=== PATIENT | male | born 1950 | race Caucasian/White ===

== ENCOUNTER 2016-12-31 11:58 | Observation (INO) | payer OTHER ==
[~2016-12-31] VITALS: Ht 177.8 cm; Wt 98.4 kg
--- NOTE | 2016-12-31 12:40 | EMERGENCY ROOM VISIT NOTE ---
History Report prepared by Tom: Eligio Holden Under the Supervision of: Dr. Liz Faust D.O. First contact with patient: 12:20 Chief Complaint: RESPIRATORY PROBLEMS Stated Complaint: COUGHING AND PASSING OUT, HX OF HEART TROUBLE Nursing Triage Summary: Relates coughing that develops into syncope. History of Present Illness The patient is a 66 year old male who presents to the Emergency Room with complaints of a worsening cough for the past 1-2 weeks. The patient has episodes of excessive coughing. The cough is dry and nonproductive. The patient states that the coughing leads to lightheadedness and syncope. The patient becomes short of breath with exertion. He denies chest pain or pressure. He does not become dizzy or lightheaded with exertion. The patient has been excessively tired lately, and he notes that he falls asleep easily even after a full night of sleep. He also describes bilateral shoulder heaviness intermittently that is not associated with exertion. The patient had similar shoulder heaviness in the past, that led to Cardiology referral and cardiac catheterization and three stents being placed. The patient denies recent fevers , chills, congestion, nausea, vomiting, diarrhea, or leg swelling. He denies recent medication changes or travel. The patient last saw Cardiology over 9 months ago. It has been several years since his last catheterization. He was never a smoker. Source of History: patient Onset: 1-2 weeks ago Position: other (respiratory) Quality: other (dry, nonproductive) Timing: worsening Associated Symptoms: + LOC, + SOB, + fatigue, No fevers, No chills, No chest pain, No nausea, No vomiting, No diarrhea Review of Systems See HPI for pertinent positives & negatives. A total of 10 systems reviewed and were otherwise negative. Past Medical & Surgical Medical Problems: (1) Atypical chest pain (2) CAD (coronary artery disease) Surgical Problems: (1) H/O heart artery stent Family History No pertinent family history Social History Smoking Status: Never Smoker Marital Status: Housing Status: lives with family Current/Historical Medications Scheduled Aspirin (Aspirin Ec), 81 MG PO DAILY Atorvastatin (Lipitor), 80 MG PO DAILY Doxycycline Hyclate (Doxycycline Hyclate), 100 MG PO BID Escitalopram Oxalate (Lexapro), 20 MG PO DAILY Fexofenadine Hcl (Kristen), 180 MG PO DAILY Insulin Human NPH (Novolin N), 45 UNITS SQ QAM Insulin Human NPH (Novolin N), 35 UNITS SQ QPM Insulin Human Regular (Novolin R), 25 UNITS SQ QAM Insulin Human Regular (Novolin R), 10 UNITS SQ QPM Isosorbide Mononitrate (Isosorbide Mononitrate ER), 90 MG PO BID Metformin Hcl (Glucophage), 850 MG PO BID Metoprolol Succ (Toprol Xl) (Toprol-Xl), 25 MG PO QAM Potassium Chloride (Micro-K Ext Rel), 10 MEQ PO DAILY Triamcinolone Acetonide (Nasal (Nasacort Allergy 24Hr), 2 SPRAYS CALEB DAILY Scheduled PRN Guaifenesin Ext Rel (Mucinex Ext Rel), 600 MG PO Q12 PRN for Cough Allergies Coded Allergies: No Known Allergies (Unverified , 12/31/16) Physical Exam Vital Signs Date Time Temp Pulse Resp B/P (MAP) Pulse Ox O2 Delivery O2 Flow Rate FiO2 12/31/16 15:15 56 17 96 12/31/16 15:10 56 18 96 12/31/16 15:05 56 22 97 12/31/16 15:00 52 18 96 12/31/16 14:55 55 20 95 12/31/16 14:50 103/59 12/31/16 12:58 63 96 12/31/16 12:53 60 20 96 12/31/16 12:48 60 18 12/31/16 12:43 58 21 95 12/31/16 12:38 62 15 96 12/31/16 12:33 61 21 96 12/31/16 12:28 58 22 96 12/31/16 12:23 65 16 94 12/31/16 12:18 59 16 98 12/31/16 12:14 58 12/31/16 12:13 55 15 97 12/31/16 12:08 59 20 97 12/31/16 12:07 96 Room Air 12/31/16 12:05 108/65 12/31/16 12:04 36.9 64 20 106/74 95 Room Air Physical Exam GENERAL: alert, well appearing, well nourished, no distress, non-toxic EYE EXAM: normal conjunctiva. OROPHARYNX: no exudate, no erythema, lips, buccal mucosa, and tongue normal and mucous membranes are moist NECK: supple, no nuchal rigidity, no adenopathy, non-tender LUNGS: Clear to auscultation. Normal chest wall mechanics HEART: no murmurs, S1 normal and S2 normal CHEST: No reproducible chest tenderness. ABDOMEN: abdomen soft, non-tender, normo-active bowel sounds, no masses, no rebound or guarding. BACK: Back is symmetrical on inspection and there is no deformity, no midline tenderness, no CVA tenderness. SKIN: no rashes and no bruising UPPER EXTREMITIES: upper extremities are grossly normal. No reproducible shoulder tenderness. LOWER EXTREMITIES: No pitting edema. NEURO EXAM: Normal sensorium, cranial nerves II-XII grossly intact, normal speech, no gross weakness of arms, no gross weakness of legs. Gross sensation intact. Medical Decision & Procedures ER Provider Diagnostic Interpretation: Radiology results have been interpreted by the radiologist and reviewed by me. CHEST 2 VIEWS ROUTINE CLINICAL HISTORY: Shortness of breath. Cough. Syncope. COMPARISON STUDY: 11/22/2009 FINDINGS: The cardiac and mediastinal contours are normal. There is no evidence of focal pulmonary consolidation. There is no evidence of failure. No pleural effusions are visualized.[ IMPRESSION: No active disease in the chest. Electronically signed by: Jc Hu M.D. 12/31/2016 1:08 PM Dictated Date/Time: 12/31/2016 1:08 PM Laboratory Results Test 12/31/16 12:45 Prothrombin Time 10.6 SECONDS (9.0-12.0) Prothromb Time International Ratio 1.0 (0.9-1.1) D-Dimer 300 ug/L FEU (0-500) Pro-B-Type Natriuretic Peptide 290 pg/ml (0-900) Laboratory results per my review. ECG Indication: SOB/dyspnea Rate (beats per minute): 64 Rhythm: normal sinus Findings: no acute ischemic change, no ectopy ED Course 1222: The patient was evaluated in room B2. A complete history and physical exam was performed. 1238: EMR reviewed. The patient's last cardiac catheterization was in the 2009. Three stents noted with additional coronary disease. Medical management was advised. 1342: Updated the patient. Discussed the findings. He agrees with the plan. 1350: Discussed the case with Dr. Terrence Ochoa, [facility]. The patient will be evaluated. He requested a D-dimer. Medical Decision Differential diagnosis: Etiologies such as cardiac ischemia, aortic dissection, pulmonary embolism, pneumonia, pneumothorax, musculoskeletal, infections, pericarditis, myocarditis , esophageal rupture, gastrointestinal, as well as others were entertained. Medication Reconciliation: I attest that I have personally reviewed the patient' s current medication list. Blood pressure screening: Patient was found to have normal blood pressure on screening and does not require follow-up. Pt with hx of CAD and concerning story for angina similar to prior episodes. No hx of trauma or recent illness. Unclear etiology of cough. Pt not taking FRANKLYN inhibitor. NO evidence of chf or infiltrate. No hx of additional pulmonary comorbidities. Doubt dissection, pe, tamponade, effusion. Dimer requested by hospitalist was negative. VS otw stable and pt without sx while here. Concern for syncope related to coughing also. Concern given pt's description of shoulder pain similar to prior episode which led to stent placement as pt's anginal equivalent. Pt with normal and nonfocal neuro exam, doubt neuro etiology for syncope. No other recent changes or prodromal sx prior to cough related syncope. No evidence of infectious etiology. Consults Time Called: 1340 Consulting Physician: Dr. Terrence Ochoa, [facility] Returned Call: 1350 The patient will be evaluated. Impression Primary Impression: Cough Additional Impressions: Shoulder pain Syncope Scribe Attestation The scribe's documentation has been prepared under my direction and personally reviewed by me in its entirety. I confirm that the note above accurately reflects all work, treatment, procedures, and medical decision making performed by me. Departure Information Dispostion Being Evaluated By Hospitalist Prescriptions Guaifenesin Ext Rel (MUCINEX EXT REL) 600 Mg Tabcr 600 MG PO Q12 Y for Cough, #30 TAB 0 Refills Prov: Jerome Wilkinson MD 01/01/17 Fexofenadine Hcl (KRISTEN) 180 Mg Tab 180 MG PO DAILY, #30 TAB 0 Refills Prov: Jerome Wilkinson MD 01/01/17 Triamcinolone Acetonide (Nasal (Nasacort Allergy 24Hr) 55 Mcg/Act Spr 2 SPRAYS CALEB DAILY, #1 BTL 0 Refills Prov: Jerome Wilkinson MD 01/01/17 Doxycycline Hyclate (Doxycycline Hyclate) 100 Mg Cap 100 MG PO BID for 5 Days, #10 CAP 0 Refills begin AM of 01/02/17 Prov: Jerome Wilkinson MD 01/01/17 Referrals Armando Medina M.D. (PCP) Patient Instructions My [facility] Problem Qualifiers Additional Impressions: Shoulder pain Chronicity: acute Laterality: bilateral Qualified Codes: M25.511 - Pain in right shoulder; M25.512 - Pain in left shoulder Syncope Syncope type: unspecified Qualified Codes: R55 - Syncope and collapse
[2016-12-31 12:55] LABS: BASO % 0.9 %; BASO ABS # 0.07 K/uL (0-0.2); COMPLETE YES; EOS % 3.4 %; HEMATOCRIT 36.8 % (42-52); IG% 0.3 %; LYMPH % 41.4 %; LYMPH ABS # 3.06 K/uL (1.2-3.4); MEAN CELL VOLUME 87.8 fL (80-100); MEAN CORPUSCULAR HEMOGLOBIN 30.1 pg (25-34); MEAN CORPUSCULAR HGB CONC 34.2 g/dl (32-36); MEAN PLATELET VOLUME 10.4 fL (7.4-10.4); MONO % 6.4 %; NEUT % 47.6 %; PLATELET COUNT 193 K/uL (130-400); RED BLOOD COUNT 4.19 M/uL (4.7-6.1)
[2016-12-31 13:09] LABS: PROTHROMBIN TIME (PATIENT) 10.6 SECONDS (9.0-12.0)
--- NOTE | 2016-12-31 13:10 | DIAGNOSTIC IMAGING REPORT ---
CHEST 2 VIEWS ROUTINE CLINICAL HISTORY: Shortness of breath. Cough. Syncope. COMPARISON STUDY: 11/22/2009 FINDINGS: The cardiac and mediastinal contours are normal. There is no evidence of focal pulmonary consolidation. There is no evidence of failure. No pleural effusions are visualized.[ IMPRESSION: No active disease in the chest. Electronically signed by: Jc Hu M.D. 12/31/2016 1:08 PM Dictated Date/Time: 12/31/2016 1:08 PM
[2016-12-31 13:11] LABS: BLOOD UREA NITROGEN 12 mg/dl (7-18); CREATININE 0.81 mg/dl (0.60-1.40); GLUCOSE 225 mg/dl (70-99)
[2016-12-31 13:12] LABS: ALT/SGPT 24 U/L (12-78); AST/SGOT 15 U/L (15-37); BUN/CREATININE RATIO 14.5 (10-20); CALCIUM 8.2 mg/dl (8.5-10.1); CARBON DIOXIDE 28 mmol/L (21-32); CHLORIDE 107 mmol/L (98-107); MAGNESIUM 1.8 mg/dl (1.8-2.4); POTASSIUM 4.2 mmol/L (3.5-5.1); SODIUM 141 mmol/L (136-145)
[2016-12-31] MEDS ORDERED: ASPI81TA28 PO (13:13)
[2016-12-31] MEDS ORDERED: IMDSR60 PO (13:13)
[2016-12-31] MEDS ORDERED: METF-383 PO (13:13)
[2016-12-31] MEDS ORDERED: ATOR-26 PO (13:13)
[2016-12-31] MEDS ORDERED: ESCI1TAB10 PO (13:13)
[2016-12-31] MEDS ORDERED: NVLNI SQ ×2 (13:13)
[2016-12-31] MEDS ORDERED: POTA10CA28 PO (13:13)
[2016-12-31] MEDS ORDERED: RRNOVOLINR SQ (13:13)
[2016-12-31] MEDS ORDERED: NVLRPUC SQ (13:13)
[2016-12-31] MEDS ORDERED: METO25TA56 PO (13:13)
[2016-12-31 13:17] LABS: ALB/GLOB RATIO 1.2 (0.9-2); ALKALINE PHOSPHATASE 80 U/L (45-117)
--- NOTE | 2016-12-31 15:06 | History and Physical ---
History & Physical Date & Time of Service: Dec 31, 2016 at 14:54 Chief Complaint: Coughing And Passing Out, Hx Of Heart Trouble Primary Care Physician: Armando Medina M.D. History of Present Illness Source: patient, family, clinic records, hospital records This patient is a pleasant 66-year-old male that presents the emergency department with a main complaint of cough, dizziness and pain between his shoulder blades. He is unable to tell me how long the symptoms have been going on. He thinks that the cough has been going on for at least one month. It is nonproductive. When he has these coughing fits, he gets significantly lightheaded. The patient started coughing in the car today while he was driving with his . He reportedly passed out for 1-2 seconds. He denies any fever or chills. No sick contacts. The patient describes the pain between his shoulder blades as a dull ache as if he over exerted himself or lifted something heavy. He cannot associate it with exertion. It is intermittent. No alleviating factors. It does not radiate anywhere. The patient does have a significant cardiac history. He is a total of 3 cardiac stents. According to the patient, bilateral shoulder pain proceeded one of the stents. Past Medical/Surgical History Medical Problems: Coronary artery disease status post 3 stents Depression Diabetes type 2 Hypertension Family History No pertinent family history Mother and father both have a history of coronary disease. [place] in their 60s Social History Smoking Status: Never Smoker Alcohol Use: none Marital Status: Housing status: lives with significant other Occupational Status: retired Allergies Coded Allergies: No Known Allergies (Unverified , 12/31/16) Home Medications Scheduled Aspirin (Aspirin Ec), 81 MG PO DAILY Atorvastatin (Lipitor), 80 MG PO DAILY Escitalopram Oxalate (Lexapro), 20 MG PO DAILY Insulin Human NPH (Novolin N), 45 UNITS SQ QAM Insulin Human NPH (Novolin N), 35 UNITS SQ QPM Insulin Human Regular (Novolin R), 25 UNITS SQ QAM Insulin Human Regular (Novolin R), 10 UNITS SQ QPM Isosorbide Mononitrate (Isosorbide Mononitrate ER), 90 MG PO BID Metformin Hcl (Glucophage), 850 MG PO BID Metoprolol Succ (Toprol Xl) (Toprol-Xl), 25 MG PO QAM Potassium Chloride (Micro-K Ext Rel), 10 MEQ PO DAILY Review of Systems 10 system review performed and negative unless noted in HPI or below Physical Exam Vital Signs Date Time Temp Pulse Resp B/P (MAP) Pulse Ox O2 Delivery O2 Flow Rate FiO2 12/31/16 14:50 103/59 12/31/16 12:58 63 96 12/31/16 12:53 60 20 96 12/31/16 12:48 60 18 12/31/16 12:43 58 21 95 12/31/16 12:38 62 15 96 12/31/16 12:33 61 21 96 12/31/16 12:28 58 22 96 12/31/16 12:23 65 16 94 12/31/16 12:18 59 16 98 12/31/16 12:14 58 12/31/16 12:13 55 15 97 12/31/16 12:08 59 20 97 12/31/16 12:07 96 Room Air 12/31/16 12:05 108/65 12/31/16 12:04 36.9 64 20 106/74 95 Room Air General Appearance: no apparent distress Head: normocephalic Eyes: EOMI Respiratory/Chest: lungs clear, + pertinent finding (no pain elicited with palpation over the scapula bilaterally. No tenderness over the thoracic spine.) Cardiovascular: regular rate, rhythm Abdomen/GI: normal bowel sounds, non tender, soft Extremities/Musculoskelatal: no calf tenderness, no pedal edema, + pertinent finding (a few scabs associated with mosquito bites noted) Neurologic/Psych: no motor/sensory deficits, oriented x 3 Skin: warm/dry Diagnostics Laboratory Results Results Past 24 Hours Test 12/31/16 12:45 Range/Units White Blood Count 7.40 4.8-10.8 K/uL Red Blood Count 4.19 4.7-6.1 M/uL Hemoglobin 12.6 14.0-18.0 g/dL Hematocrit 36.8 42-52 % Mean Corpuscular Volume 87.8 80-100 fL Mean Corpuscular Hemoglobin 30.1 25-34 pg Mean Corpuscular Hemoglobin Concent 34.2 32-36 g/dl Platelet Count 193 130-400 K/uL Mean Platelet Volume 10.4 7.4-10.4 fL Neutrophils (%) (Auto) 47.6 % Lymphocytes (%) (Auto) 41.4 % Monocytes (%) (Auto) 6.4 % Eosinophils (%) (Auto) 3.4 % Basophils (%) (Auto) 0.9 % Neutrophils # (Auto) 3.53 1.4-6.5 K/uL Lymphocytes # (Auto) 3.06 1.2-3.4 K/uL Monocytes # (Auto) 0.47 0.11-0.59 K/uL Eosinophils # (Auto) 0.25 0-0.5 K/uL Basophils # (Auto) 0.07 0-0.2 K/uL RDW Standard Deviation 42.9 36.4-46.3 fL RDW Coefficient of Variation 13.4 11.5-14.5 % Immature Granulocyte % (Auto) 0.3 % Immature Granulocyte # (Auto) 0.02 0.00-0.02 K/uL Prothrombin Time 10.6 9.0-12.0 SECONDS Prothromb Time International Ratio 1.0 0.9-1.1 D-Dimer 300 0-500 ug/L FEU Sodium Level 141 136-145 mmol/L Potassium Level 4.2 3.5-5.1 mmol/L Chloride Level 107 98-107 mmol/L Carbon Dioxide Level 28 21-32 mmol/L Anion Gap 6.0 3-11 mmol/L Blood Urea Nitrogen 12 7-18 mg/dl Creatinine 0.81 0.60-1.40 mg/dl Estimated GFR () 105.8 Estimated GFR (Non- 91.3 BUN/Creatinine Ratio 14.5 10-20 Random Glucose 225 70-99 mg/dl Calcium Level 8.2 8.5-10.1 mg/dl Magnesium Level 1.8 1.8-2.4 mg/dl Total Bilirubin 0.4 0.2-1 mg/dl Aspartate Amino Transf (AST/SGOT) 15 15-37 U/L Alanine Aminotransferase (ALT/SGPT) 24 12-78 U/L Alkaline Phosphatase 80 45-117 U/L Troponin I < 0.015 0-0.045 ng/ml Pro-B-Type Natriuretic Peptide 290 0-900 pg/ml Total Protein 6.2 6.4-8.2 gm/dl Albumin 3.4 3.4-5.0 gm/dl Globulin 2.8 2.5-4.0 gm/dl Albumin/Globulin Ratio 1.2 0.9-2 Diagnostic Radiology Patient: JARRED FLANNERY Address1: [address] [facility] Rec: [id number] Address2: Acct ID: [id number] [facility] Zip: [place] [id number] Date: 1950 Sex: M Room/Bed: Ref Phy: Armando Medina M.D. SC: MANISHB Att Phy: Report #: [id number] Brittany Phy: Armando Medina M.D. Test: CXR Admit Phy: Safety Leader: FILIPE Interpreting Phy: cJ Hu M.D. Diagnosis: COUGHING AND PASSING OUT, HX OF HEART TROUBLE Ordering Phy: Liz Faust DO Service Date: 12/31/16 Admit Date: 12/31/16 MNE: [id number] CONF: DICTATED BY: Jc Hu M.D.]] CC: Armando Medina M.D. Pheasant, Karen S., DO Endcc: DIAGNOSTIC IMAGING ] CHEST 2 VIEWS ROUTINE CLINICAL HISTORY: Shortness of breath. Cough. Syncope. COMPARISON STUDY: 11/22/2009 FINDINGS: The cardiac and mediastinal contours are normal. There is no evidence of focal pulmonary consolidation. There is no evidence of failure. No pleural effusions are visualized.[ IMPRESSION: No active disease in the chest. Electronically signed by: Jc Hu M.D. 12/31/2016 1:08 PM Dictated Date/Time: 12/31/2016 1:08 PM The status of this report is Signed. EKG Normal sinus rhythm 64 bpm Q waves noted in the inferior leads No acute ischemic changes noted Impression Assessment and Plan 66-year-old male presented to the emergency department with chronic cough, lightheadedness and bilateral shoulder discomfort. Patient has a significant history of coronary disease. Differential diagnosis includes unstable angina, acute coronary syndrome, aortic dissection, pericarditis, infectious etiology such as bronchitis, pneumonia, sinusitis, postnasal drip secondary to allergies. Less likely would be a neurologic cause. I believe that the syncopal episodes are likely vasovagal from coughing spells. Bilateral shoulder discomfort rule out acute coronary syndrome -observe in telemetry -follow cardiac enzymes every 8 hr x 2 -daily EKG -EKG with worsening pain -Stress echo -Consult cardiology -D-dimer was checked and within normal limits. Aortic dissection would be highly unlikely -Continue current medical management with aspirin 81 mg daily, Plavix 75 mg daily, Crestor 40 mg daily, Toprol-XL 25 mg daily and Imdur ER 90 mg daily Syncope-likely vasovagal in nature -Check orthostatics -Telemetry monitoring as noted above Diabetes mellitus type 2-blood sugars have been running slightly high -Hold patient's outpatient dose of metformin 850 mg twice daily while in-house -Continue Novolin 45 units with breakfast and 35 units with dinner -Add insulin sliding scale -Check hemoglobin A1c DVT prophylaxis -Lovenox 40 mg subQ daily -TEDS, SCDs CODE STATUS -LEVEL I FULL CODE This chart was completed in part utilizing [employer] Speech Voice Recognition software. Attempts were made to minimize the grammatical errors, random word insertions, pronoun errors and incomplete sentences. Any formal questions or concerns about the content, text or information contained within the body of this dictation should be directly addressed to the provider for clarification. I personally and independently interviewed and examined the patient I reviewed labs and imaging I agree with above mentioned physical exam, History and ROS I discussed and formulated the assessment and plan with Mrs. Griffin 66-year-old male P/W recurrent syncope and bilateral shoulder discomfort, he has chronic cough for the past 3-4 weeks, mainly non productive Hx of CAD and [place] few years ago but did not tolerate the CPAP machine (6 years ago) while sleeping here he developed bradycardia rest of ROS is positive for cough and syncope PE as above assessment: Chronic cough syncope bilateral shoulder discomfort Plan: Stress test start heparin drip cardiac consult O2 pulse recorder over night to evaluate the extent of his sleep apnea lipitor/ASA HgbA1c and lipids panel Onesimo Ochoa [facility] Level of Care Telemetry Resuscitation Status FULL RESUSCITATION VTE Prophylaxis VTE Risk Assessment Done? Y/N: Yes Risk Level: Low
[2016-12-31] MEDS ORDERED: NITROGLYCERIN 0.4 MG SL PER TAB CHARGE SL PRN (15:15)
[2016-12-31] MEDS ORDERED: ONDANSETRON INJ 2 MG/ML 2 ML VIAL IV PRN (15:15)
[2016-12-31] MEDS ORDERED: ACETAMINOPHEN 325 MG TAB PO PRN (15:15)
[2016-12-31 15:30] VITALS: O2SAT 96; BMI 32.3
[2016-12-31] MEDS ORDERED: ISOSORBIDE MONONITRATE 60 MG TABCR PO SCH (15:36)
[2016-12-31] MEDS ORDERED: METO25TA3 PO (15:45)
[2016-12-31] MEDS ORDERED: IV FLUIDS COMPLETED PRN (15:45)
[2016-12-31] MEDS ORDERED: GLUCOSE 40% GEL 15 GM TUBE PO PRN (17:00)
[2016-12-31] MEDS ORDERED: GLUCAGON FOR INJ 1 MG VIAL SQ PRN (17:00)
[2016-12-31] MEDS ORDERED: GLUCOSE 10 TABS/TUBE PO PRN (17:00)
[2016-12-31] MEDS ORDERED: DEXTROSE 50% 50 ML SYR IV PRN (17:00)
[2016-12-31 17:04] VITALS: BP 112/67; PULSE 54; TEMP 36.4; O2SAT 96
[2016-12-31] MEDS ORDERED: PHARMACY GLYCEMIC MGMT CONSULT PRN (17:30)
[2016-12-31] MEDS: INSULIN ASPART 100 UNITS/ML 3 ML PEN SC SCH ×2 (18:11→21:00)
[2016-12-31 18:53] VITALS: BP 104/59; PULSE 50; TEMP 36.5; O2SAT 94
[2016-12-31] MEDS ORDERED: INSULIN HUMAN REGULAR SQ SCH (21:00)
[2016-12-31] MEDS ORDERED: ENOXAPARIN 40 MG/0.4 ML SYR SC SCH (21:00)
[2016-12-31] MEDS ORDERED: AZITHROMYCIN 250 MG TAB PO ONE (21:00)
[2016-12-31] MEDS: INSULIN GLARGINE SOLOSTAR 100 UNITS/ML 3 ML PEN SC SCH (21:13)
[2016-12-31 22:13] LABS: CKMB/CK RATIO 0.9 (0-3.0)
[2016-12-31 23:53] VITALS: BP 118/70; PULSE 58; TEMP 36.7; O2SAT 94
[2017-01-01] VITALS (7 sets, daily range): BP systolic 101–122; BP diastolic 62–78; PULSE 58–77; TEMP 36.4–36.6; O2SAT 91–96; Ht 177.8 cm; Wt 98.4 kg
[2017-01-01] MEDS: INSULIN ASPART 100 UNITS/ML 3 ML PEN SC SCH (07:57)
--- NOTE | 2017-01-01 08:12 | Hospitalist Progress Note ---
Hospitalist Progress Note Date of Service Jan 01, 2017. (Isha Neville PA-C) Subjective Pt evaluation today including: conversation w/ patient, conversation w/ family , physical exam, chart review, lab review, review of studies Pain: none PO Intake: good Voiding: no voiding problems The patient was seen and examined this morning. Pt reports doing well. He just had his stress test completed with Dr. Zepeda. He denies having any chest pain during the procedure. He did feels a little fatigued on the treadmill, but denies any shoulder blade pain like he had yesterday. Pt denies any other acute complaints Constitutional: No fever, No chills, No sweats Eyes: No redness, No diplopia ENT: No nasal symptoms, No trouble swallowing Respiratory: No cough, No shortness of breath, No dyspnea on exertion Cardiovascular: No chest pain, No palpitations Abdomen: No pain, No nausea, No vomiting, No diarrhea, No constipation Musculoskeletal: No joint pain, No muscle pain, No swelling Male : No dysuria Neurologic: No weakness, No numbness/tingling Endo: No fatigue Skin: No rash, No itch (Isha Neville PA-C) Objective Vital Signs Date Time Temp Pulse Resp B/P (MAP) Pulse Ox O2 Delivery O2 Flow Rate FiO2 01/01/17 07:33 36.6 58 20 112/68 (83) 95 Room Air 01/01/17 04:05 96 Room Air 01/01/17 04:00 36.5 62 20 122/78 (93) 94 Room Air 01/01/17 00:05 96 Room Air 12/31/16 23:53 36.7 58 20 118/70 (86) 94 Room Air 12/31/16 20:00 Room Air 12/31/16 18:53 36.5 50 18 104/59 (74) 94 Room Air 12/31/16 17:04 36.4 54 20 112/67 (82) 96 Room Air 12/31/16 16:32 36.9 56 16 91/62 96 12/31/16 16:10 56 16 96 12/31/16 16:05 50 19 95 12/31/16 16:00 51 19 /62 95 12/31/16 15:55 50 16 95 12/31/16 15:50 51 20 95 12/31/16 15:45 54 16 93 12/31/16 15:40 53 19 97 12/31/16 15:39 92/55 12/31/16 15:39 53 18 92/55 96 12/31/16 15:35 57 24 94 12/31/16 15:30 96 Room Air 12/31/16 15:30 59 21 96 12/31/16 15:25 55 20 94 12/31/16 15:20 52 18 93 12/31/16 15:15 56 17 96 12/31/16 15:10 56 18 96 12/31/16 15:05 56 22 97 12/31/16 15:00 52 18 96 12/31/16 14:55 55 20 95 12/31/16 14:50 103/59 12/31/16 12:58 63 96 12/31/16 12:53 60 20 96 12/31/16 12:48 60 18 12/31/16 12:43 58 21 95 12/31/16 12:38 62 15 96 12/31/16 12:33 61 21 96 12/31/16 12:28 58 22 96 12/31/16 12:23 65 16 94 12/31/16 12:18 59 16 98 12/31/16 12:14 58 12/31/16 12:13 55 15 97 12/31/16 12:08 59 20 97 12/31/16 12:07 96 Room Air 12/31/16 12:05 108/65 12/31/16 12:04 36.9 64 20 106/74 95 Room Air (Isha Neville PA-C) Physical Exam General Appearance: WD/WN, no apparent distress Eyes: PERRL, EOMI ENT: hearing grossly normal, pharynx normal Neck: supple, no JVD Respiratory/Chest: chest non-tender, lungs clear, no respiratory distress, no accessory muscle use Cardiovascular: regular rate, rhythm, no murmur Abdomen: normal bowel sounds, non tender, soft Extremities: non-tender, no pedal edema, no calf tenderness Neurologic/Psychiatric: alert, normal mood/affect, oriented x 3 Skin: normal color, warm/dry (Isha Neville PA-C) Laboratory Results Last 24 Hours Test 12/31/16 12:45 12/31/16 18:07 12/31/16 21:00 12/31/16 21:15 White Blood Count 7.40 K/uL Red Blood Count 4.19 M/uL Hemoglobin 12.6 g/dL Hematocrit 36.8 % Mean Corpuscular Volume 87.8 fL Mean Corpuscular Hemoglobin 30.1 pg Mean Corpuscular Hemoglobin Concent 34.2 g/dl Platelet Count 193 K/uL Mean Platelet Volume 10.4 fL Neutrophils (%) (Auto) 47.6 % Lymphocytes (%) (Auto) 41.4 % Monocytes (%) (Auto) 6.4 % Eosinophils (%) (Auto) 3.4 % Basophils (%) (Auto) 0.9 % Neutrophils # (Auto) 3.53 K/uL Lymphocytes # (Auto) 3.06 K/uL Monocytes # (Auto) 0.47 K/uL Eosinophils # (Auto) 0.25 K/uL Basophils # (Auto) 0.07 K/uL RDW Standard Deviation 42.9 fL RDW Coefficient of Variation 13.4 % Immature Granulocyte % (Auto) 0.3 % Immature Granulocyte # (Auto) 0.02 K/uL Prothrombin Time 10.6 SECONDS Prothromb Time International Ratio 1.0 D-Dimer 300 ug/L FEU Sodium Level 141 mmol/L Potassium Level 4.2 mmol/L Chloride Level 107 mmol/L Carbon Dioxide Level 28 mmol/L Anion Gap 6.0 mmol/L Blood Urea Nitrogen 12 mg/dl Creatinine 0.81 mg/dl Estimated GFR () 105.8 Estimated GFR (Non- 91.3 BUN/Creatinine Ratio 14.5 Random Glucose 225 mg/dl Calcium Level 8.2 mg/dl Magnesium Level 1.8 mg/dl Total Bilirubin 0.4 mg/dl Aspartate Amino Transf (AST/SGOT) 15 U/L Alanine Aminotransferase (ALT/SGPT) 24 U/L Alkaline Phosphatase 80 U/L Troponin I < 0.015 ng/ml < 0.015 ng/ml Pro-B-Type Natriuretic Peptide 290 pg/ml Total Protein 6.2 gm/dl Albumin 3.4 gm/dl Globulin 2.8 gm/dl Albumin/Globulin Ratio 1.2 Bedside Glucose 121 mg/dl 78 mg/dl Total Creatine Kinase 173 U/L Creatine Kinase MB 1.6 ng/ml Creatine Kinase MB Ratio 0.9 Test 01/01/17 05:06 01/01/17 07:28 Creatine Kinase MB Ratio Bedside Glucose 144 mg/dl (Isha Neville, CHRISTOPHE) Assessment and Plan Bilateral shoulder discomfort rule out acute coronary syndrome - Cardiac enzymes were negative x 3 -daily EKG shows bradycardia with HR in high 50s to low 60s. -EKG with worsening pain - Cardiology on board, Stress echo completed, await results. If good then likely can be discharged home. Will need follow up with Dr. Zepeda as oupt -Continue current medical management with aspirin 81 mg daily, Plavix 75 mg daily, Crestor 40 mg daily, Toprol-XL 25 mg daily and Imdur ER 90 mg daily Syncope-likely vasovagal in nature -Check orthostatics- results are WNL -Telemetry monitoring as noted above DM II -blood sugars have been running slightly high -Hold patient's outpatient dose of metformin 850 mg twice daily while in-house -Continue Novolin 45 units with breakfast and 35 units with dinner -ISS with accuchecks -Hgb A1c=8.9, improved compared to previously DVT pppx: -Lovenox 40 mg subQ daily, -TEDS, SCDs CODE STATUS: -LEVEL I FULL CODE Disposition: From home, likely discharge home today if stress test was normal. (Isha Neville, CHRISTOPHE) Attending Attestation: Pt seen/examined, chart reviewed, care plan d/w MARQUISE Neville. I agree w/ the anderson components of her progress note documentation. Please see my addendum to the d/c summary dated 01/01/17 for more details. Jerome Wilkinson MD (Jerome Wilkinson MD)
[2017-01-01] MEDS: INSULIN GLARGINE SOLOSTAR 100 UNITS/ML 3 ML PEN SC SCH (08:25)
[2017-01-01] MEDS ORDERED: ESCITALOPRAM OXALATE 20 MG TAB PO SCH (09:00)
[2017-01-01] MEDS ORDERED: ASPIRIN 81 MG ECTAB PO SCH (09:00)
[2017-01-01] MEDS ORDERED: INSULIN HUMAN NPH SQ SCH (09:00)
[2017-01-01] MEDS ORDERED: ATORVASTATIN 20 MG TAB PO SCH (09:00)
[2017-01-01] MEDS ORDERED: ISOSORBIDE MONONITRATE 30 MG TABCR PO SCH (09:00)
[2017-01-01] MEDS ORDERED: METOPROLOL SUCC 25MG EXT REL TAB PO SCH (09:00)
[2017-01-01] MEDS ORDERED: AZITHROMYCIN 250 MG TAB PO SCH (09:00)
[2017-01-01 09:20] LABS: BASO % 1.1 %; BASO ABS # 0.07 K/uL (0-0.2); COMPLETE YES; EOS % 3.4 %; IG% 0.3 %; LYMPH % 32.1 %; LYMPH ABS # 2.09 K/uL (1.2-3.4); MEAN CELL VOLUME 89.1 fL (80-100); MEAN CORPUSCULAR HEMOGLOBIN 30.7 pg (25-34); MEAN CORPUSCULAR HGB CONC 34.5 g/dl (32-36); MEAN PLATELET VOLUME 10.8 fL (7.4-10.4); MONO % 6.3 %; NEUT % 56.8 %; PLATELET COUNT 209 K/uL (130-400); RED BLOOD COUNT 4.49 M/uL (4.7-6.1); WHITE BLOOD COUNT 6.52 K/uL (4.8-10.8)
[2017-01-01 09:48] LABS: ESTIMATED AVERAGE GLUCOSE 209 mg/dl; HA1C FLAG Normal (Normal)
--- NOTE | 2017-01-01 09:58 | CARDIOLOGY CONSULTATION ---
DATE OF CONSULTATION: 01/01/2017 DATE OF CONSULTATION: 01/01/2017. REFERRING PHYSICIAN: Dr. Onesimo Ochoa. CHIEF COMPLAINT: Shoulder pain. HISTORY OF PRESENT ILLNESS: Mr. Paul Mejias is a 66-year-old gentleman with an extensive history of coronary artery disease having previously undergone percutaneous interventions on several occasions. The patient states that approximately 2 weeks ago he began experiencing symptoms of a cough. The cough was infrequent initially and not associated with any particular activity. Occasionally he would have brief coughing spells which became more severe recently. These spells appeared to be unprovoked and occasionally caused syncope. The patient did have an episode of syncope yesterday while coughing in the car. In addition to the coughing, the patient has noticed the development of an aching sensation across his shoulders and back. This waxes and wanes in severity. It can last for a brief period of time or an extended period. It is not exclusively associated with exertion, although he does report having had an episode with activity. The patient states that the character of the symptom is similar to that experienced prior to percutaneous interventions. Based on the persistent nature of his symptoms and episode of syncope yesterday associated with coughing the patient contacted the clinic and was advised to seek medical attention in the Emergency Room. At the time of this interview, the patient claims to be feeling well. He had a brief coughing episode this morning that was not severe. He had some very mild discomfort across his shoulders yesterday but does not complain of those symptoms currently. In general, he is an active individual who is able to perform routine work without limitation. He splits his own wood and carried wood at home. He ascends stairs and recently unloaded a truck with his son. During these activities he did not have symptoms of coughing or discomfort across his shoulders. He does admit to being relatively sedentary over the past several weeks however due to the nature of these symptoms. PAST MEDICAL HISTORY: 1. Significant for the aforementioned coronary artery disease. The patient underwent percutaneous intervention on 3 separate occasions including stent to the first diagnosed in 1998 and subsequently the circumflex vessel in 1999. More recently the patient had repeat angiography, which demonstrated stenosis of the diagnosis vessel that was not felt to be amenable to percutaneous intervention. It should be noted also that his original percutaneous intervention was performed at [facility] with laser and rotablator therapy. Stress echocardiogram was performed in 2015, which was normal. No evidence of inducible ischemia. Left ventricular function at that time was also normal. 2. Depression. 3. Hyperlipidemia. 4. Gastroesophageal reflux disease. 5. Hypertension. 6. Diabetes mellitus. PAST SURGICAL HISTORY: Significant only for the aforementioned percutaneous interventions. OUTPATIENT MEDICATIONS: Include aspirin, rosuvastatin, insulin, Imdur, Lexapro, metformin, metoprolol, Plavix and Singulair. SOCIAL HISTORY: The patient is a lifelong nonsmoker. He denies significant alcohol abuse. Currently lives locally. FAMILY HISTORY: Significant for coronary disease but not premature. REVIEW OF SYSTEMS: A complete review of systems was performed and the pertinent positives noted in the history of present illness. The remainder being negative. The patient did not report any constitutional symptoms associated with his coughing. He has not had fevers or chills. He does report snoring at nighttime and recently had some headaches in the morning which were not relieved with Tylenol. He has been eating well. He denies any change in his bowel or bladder habits. He had mild abdominal discomfort with coughing, but not at other times. He denies any bleeding issues. He has not noticed any swelling in his lower extremities. PHYSICAL EXAMINATION: GENERAL: The patient did not appear to be in any acute distress. He is a pleasant individual who is alert and oriented. Mood and affect appeared normal. He answered all questions appropriately. CURRENT VITAL SIGNS: Include blood pressure 112/68 with a pulse of 58. HEAD, EYES, EARS, NOSE, AND THROAT: His sclerae are anicteric. Pupils equal, reactive to light and accommodation. Extraocular movements were intact. Palpation of submandibular region did not reveal any significant lymphadenopathy. The carotids are palpable bilaterally. There are no bruits on auscultation. I did not appreciate any jugular venous distention. There was no evidence of thyromegaly. NEUROLOGIC EXAMINATION: Revealed cranial nerves to be intact. LUNGS: Auscultation of both lung kraft revealed normal breath sounds without rales, wheezes or rhonchi. He had good respiratory effort without use of accessory muscles. CARDIAC EXAMINATION: Revealed him to be in a regular rhythm with normal S1, normal S2. I do not appreciate any murmurs on exam. PMI was not markedly displaced on palpation. EXTREMITIES: Evaluation of both wrists revealed radial pulses that were equal in intensity. There is no evidence of cyanosis or clubbing. Evaluation of lower extremities did not reveal any significant peripheral edema. I did not appreciate any rashes on exam today. LABORATORY STUDIES: Obtained since admission include a white cell count of 7.4, hemoglobin of 12.6, platelet count of 193. Cardiac troponin was less than detectable limit on 2 occasions. Sodium was 141, potassium was 4.2, BUN was 12, creatinine was 0.81. A 12-lead EKG was obtained at the time of admission which revealed the patient in a sinus rhythm without significant ST and T-wave changes. This did not differ from prior EKGs. The patient had a single view chest x-ray obtained at the time of admission which did not reveal any evidence of acute cardiopulmonary disease. ASSESSMENT AND PLAN: 1. Shoulder discomfort: In the past this has been suggestive of ischemic discomfort. The patient has undergone percutaneous intervention for similar symptoms in the past. These symptoms currently are not exclusively exertional and appear to be fairly random. Despite repeat episodes of discomfort the patient's cardiac biomarkers are not abnormal. At this point, given the unclear association with cardiac disease and his known history of cardiac disease stress testing would seem appropriate and he is scheduled for that later today. The patient has a normal EKG which would facilitate exercise testing. 2. Syncope: This appears to be related to coughing fits. This is likely related to a period of brief hypoxia and is not associated with arrhythmia. The patient has no other symptoms associated with the episodes such as palpitations. He is known to have preserved LV systolic function. At this point, addressing his coughing is likely to prevent additional episodes of syncope. 3. Coronary artery disease: The patient is known to have coronary artery disease that has required intervention in the past. Last catheterization suggested persistent nonobstructive disease. The patient is on an aggressive regimen for secondary prevention, which should be continued. Additional recommendations following his stress testing.
[2017-01-01 10:00] LABS: ALT/SGPT 26 U/L (12-78); AST/SGOT 16 U/L (15-37); BLOOD UREA NITROGEN 12 mg/dl (7-18); BUN/CREATININE RATIO 14.3 (10-20); CALCIUM 8.5 mg/dl (8.5-10.1); CARBON DIOXIDE 31 mmol/L (21-32); CHLORIDE 107 mmol/L (98-107); CHOLESTEROL 89 mg/dl (0-200); CREATININE 0.84 mg/dl (0.60-1.40); GLUCOSE 146 mg/dl (70-99); MAGNESIUM 1.9 mg/dl (1.8-2.4); POTASSIUM 4.2 mmol/L (3.5-5.1); SODIUM 144 mmol/L (136-145)
[2017-01-01 10:02] LABS: ALB/GLOB RATIO 1.1 (0.9-2); ALKALINE PHOSPHATASE 82 U/L (45-117); CHOLESTEROL/HDL RATIO 2.6; CKMB/CK RATIO 1.1 (0-3.0); HDL CHOLESTEROL 34 mg/dl; LDL CHOLESTEROL CALCULATED 40 mg/dl; TRIGLYCERIDES 75 mg/dl (0-150); VERY LOW DENSITY LIPOPROT CALC 15 mg/dl
--- NOTE | 2017-01-01 10:37 | Pharmacy Progress Note ---
Glycemic Control Intl Consult Date of Service Jan 01, 2017. Scope Glycemic Pharmacist consulted by CHRISTOPHE Pulido on 12/31/16 for glycemic control and to write orders per [facility] inpatient glycemic control protocol Objective Weight (Kilograms): 98.400 Accuchecks BSG (last 24hrs): Test 12/31/16 12:45 12/31/16 18:07 12/31/16 21:00 01/01/17 07:28 Random Glucose 225 mg/dl (70-99) Bedside Glucose 121 mg/dl (70-99) 78 mg/dl (70-99) 144 mg/dl (70-99) Test 01/01/17 08:15 Random Glucose 146 mg/dl (70-99) Laboratory Data (last 24hrs) Test 12/31/16 12:45 01/01/17 08:15 Anion Gap 6.0 mmol/L 6.0 mmol/L BUN/Creatinine Ratio 14.5 14.3 Blood Urea Nitrogen 12 mg/dl 12 mg/dl Creatinine 0.81 mg/dl 0.84 mg/dl Potassium Level 4.2 mmol/L 4.2 mmol/L Sodium Level 141 mmol/L 144 mmol/L White Blood Count 7.40 K/uL 6.52 K/uL Red Blood Count 4.19 M/uL 4.49 M/uL Hemoglobin 12.6 g/dL 13.8 g/dL Hematocrit 36.8 % 40.0 % Mean Corpuscular Volume 87.8 fL 89.1 fL Mean Corpuscular Hemoglobin 30.1 pg 30.7 pg Mean Corpuscular Hemoglobin Concent 34.2 g/dl 34.5 g/dl Platelet Count 193 K/uL 209 K/uL Mean Platelet Volume 10.4 fL 10.8 fL Neutrophils (%) (Auto) 47.6 % 56.8 % Lymphocytes (%) (Auto) 41.4 % 32.1 % Monocytes (%) (Auto) 6.4 % 6.3 % Eosinophils (%) (Auto) 3.4 % 3.4 % Basophils (%) (Auto) 0.9 % 1.1 % Neutrophils # (Auto) 3.53 K/uL 3.71 K/uL Lymphocytes # (Auto) 3.06 K/uL 2.09 K/uL Monocytes # (Auto) 0.47 K/uL 0.41 K/uL Eosinophils # (Auto) 0.25 K/uL 0.22 K/uL Basophils # (Auto) 0.07 K/uL 0.07 K/uL Hemoglobin A1c 8.9 % HbA1c Test 01/01/17 08:15 Hemoglobin A1c 8.9 % (4.5-5.6) H Recent Pertinent Medications Outpatient Anti-diabetic Regimen: * NPH 45 units qam and 35 units qpm * Regular insulin 25 units qam and 10 units qpm * Metformin 850 mg po BID The patient is currently receiving: * Basal insulin: Lantus 20 units SQ every 12 hours * Correctional Insulin: Novolog Correction per scale ACHS Goal Range: Low 120 mg/dL - High 150 mg/dL Correction Factor: 20 mg/dL/unit * Prandial insulin: Per carb ratio of 1 unit per 7 grams CHO consumed * Oral Agents: on hold Risk Factors for Insulin Resistance: * Infection: Zithromax PO - day #2 Assessment & Plan ASSESSMENT: * 66 yr old T2DM male admitted with cough, dizziness and pain between shoulders - r/o acute coronary syndrome * Patient is currently NPO. He is to have stress ECHO performed today. * Will hold oral agents for admission and utilize SQ basal bolus insulin regimen which is the recommended regimen for inpatient glycemic control. * Will initiate weight based insulin dosing for insulin gilberto patient and titrate based on BSG trends. * Patient uses 115 units of insulin at home. This regimen split 50% basal and 50 % bolus is equivalent to Lantus 29 units BID with CF of 15 and CR of 5. * Patient was started on Lantus 20 units BID and Novolog CF/CR 20/7 (30% reduction) * CF/CR is consistent with weight and stress of 2.5 PLAN FOR INPATIENT GLYCEMIC CONTROL: * Holding outpatient oral diabetes medications * Basal insulin with Lantus - change to dosing per scale d/t uncertainty of basal needs * 20 units for BSG less than 120 mg/dL * 25 units for BSG 120 - 180 mg/dL * 30 units for BSG greater than 180 mg/dL * Correctional Insulin with NOVOLOG per scale ACHS or Q6hrs while NPO * Goal Range: Low 120 mg/dL - High 150 mg/dL * Correction Factor: 20 mg/dL/unit * Nutritional / Prandial insulin per carb ratio of 1 unit per 7 grams CHO consumed * Please note that the plan above was derived based on current level of insulin resistance and hospital stress. These recommendations are appropriate for inpatient admission only. Plan of care upon discharge will need to be reassessed to avoid potential outpatient hypo/hyperglycemia. Thank you.
[2017-01-01] MEDS ORDERED: INSULIN ASPART 100 UNITS/ML 3 ML PEN SC SCH ×2 (11:00→12:00)
[2017-01-01] MEDS ORDERED: NURSING DECISION MEDICATION ORDER SCH (11:15)
--- NOTE | 2017-01-01 13:05 | EXERCISE STRESS ECHO ---
*NOTICE TO RECEIVING [employer]Y This information is strictly Confidential and protected under [place] law. [place] law prohibits you from making any further disclosure of this information unless further disclosure is expressly permitted by the written consent of the person to whom it pertains or is authorized by law. A general authorization for the release of medical or other information is not sufficient for this purpose. Hospital accepts no responsibility if the information is made available to any other person, INCLUDING THE PATIENT. Interpretation Summary * Name: JARRED FLANNERY Study Date: 01/01/2017 09:30 AM BP: 102/66 mmHg * Patient Location: [facility]\S\N275\S\1 HR: 57 * : 1950 (M/d/yyyy) Gender: Male Height: 70 in * Age: 66 yrs Ethnicity: [place] Weight: 216 lb * Ordering Physician: Phyllis Griffin * Referring Physician: Self, Referred * Performed By: Andree Lal RDCS * * Reason For Study: CHEST PAIN * BSA: 2.2 m2 * -- Conclusions -- * Left ventricular systolic function is normal. * Grade I diastolic dysfunction, (abnormal relaxation pattern). * Diagnostic exercise echocardiogram without evidence of inducible ischemia Procedure Details * ECHOEX, CPT #62229 * A contrast injection of Definity was performed to improve assessment of LV function. * Contrast was injected into an intravenous site in the right arm. * One vial of Definity ultrasound contrast was diluted in normal saline to a total volume of 10 ml. A total of '4' ml of solution was administered during imaging. * Lot # [id number] of Definity utilized for procedure. * Expiration date JAN 28. * The attending nurse who injected the contrast agent was FERMIN BESS RN. Left Ventricular Findings with Stress * Diagnostic exercise echocardiogram without evidence of inducible ischemia Left Ventricle * The left ventricle is normal in size. * There is normal left ventricular wall thickness. * Ejection Fraction = 55-60%. * Left ventricular systolic function is normal. * Grade I diastolic dysfunction, (abnormal relaxation pattern). * The left ventricular wall motion is normal. Right Ventricle * The right ventricle is normal in size and function. Atria * The left atrial size is normal. * Right atrial size is normal. Mitral Valve * The mitral valve anatomy is normal. * There is no mitral regurgitation noted. Tricuspid Valve * The tricuspid valve is not well visualized, but is grossly normal. * Significant tricuspid regurgitation is absent. Aortic Valve * The aortic valve is trileaflet. * No hemodynamically significant valvular aortic stenosis. * Trace aortic regurgitation. Great Vessels * The aortic root is normal size. Pericardium * There is no pericardial effusion. Stress Parameters * Normal baseline electrocardiogram. * Stress ECG: No ST changes. No arrhythmias. * The stress portion of this study was personally supervised by the undersigned interpreting physician. * Rest heart rate was '57' BPM. * Rest blood pressure was '102/66' * Maximum heart rate achieved was 130 bpm. * Maximum heart rate was 85 % of maximum age-predicted heart rate. * Maximum blood pressure was '169/70' * Total exercise time was '7:08' * Maximum exercise MET level achieved was '8.70' METS * Maximum treadmill speed was '3.40' miles per hour. * Maximum treadmill elevation was '14.00'% grade. * Exercise was terminated due to 'ACHIEVING TARGET HR' Left Ventricular Findings with Stress * Baseline EKG was normal and there were no EKG changes with exercise Baseline echocardiogram was normal and there appeared to be normal augmentation without discrete wall motion abnormalities at peak exercise. Patient did have very mild shoulder pain with exercise (index symptom) Lewis treadmill score: 3 (moderate risk) MMode 2D Measurements and Calculations IVSd 0.97 cm IVSs 1.5 cm LVIDd 4.6 cm LVIDs 3.1 cm LVPWd 1.1 cm LVPWs 1.8 cm IVS/LVPW 0.85 FS 32.3 % EDV(Teich) 96.8 ml ESV(Teich) 38.1 ml EF(Teich) 60.7 % EDV(cubed) 96.7 ml ESV(cubed) 30.0 ml EF(cubed) 69.0 % % IVS thick 56.8 % % LVPW thick 59.0 % LV mass(C)d 171.2 grams LV mass(C)dI 79.4 grams/m\S\2 LV mass(C)s 199.1 grams LV mass(C)sI 92.3 grams/m\S\2 SV(Teich) 58.7 ml SI(Teich) 27.2 ml/m\S\2 SV(cubed) 66.7 ml SI(cubed) 30.9 ml/m\S\2 Ao root diam 3.5 cm Ao root area 9.9 cm\S\2 LA dimension 3.6 cm LA/Ao 1.0 LVAd ap4 30.0 cm\S\2 LVLd ap4 8.3 cm EDV(MOD-sp4) 87.4 ml EDV(sp4-el) 92.2 ml LVAs ap4 18.2 cm\S\2 LVLs ap4 7.0 cm ESV(MOD-sp4) 43.2 ml ESV(sp4-el) 40.1 ml EF(MOD-sp4) 50.6 % EF(sp4-el) 56.5 % SV(MOD-sp4) 44.2 ml SI(MOD-sp4) 20.5 ml/m\S\2 SV(sp4-el) 52.1 ml SI(sp4-el) 24.1 ml/m\S\2 Doppler Measurements and Calculations AI max hernan 405.8 cm/sec AI max PG 65.9 mmHg AI dec slope 101.3 cm/sec\S\2 AI P1/2t 1173.8 msec
[2017-01-01] MEDS ORDERED: FEXO1TAB46 PO (14:29)
[2017-01-01] MEDS ORDERED: TRIA1SPR4 NAE (14:29)
[2017-01-01] MEDS ORDERED: GFNSR600 PO (14:29)
[2017-01-01] MEDS ORDERED: DXY100 PO (14:29)
--- NOTE | 2017-01-01 14:37 | Discharge Summary ---
Discharge Summary Date of Service Jan 01, 2017. (Isha Neville PA-C) Discharge Summary Admission Date: Dec 31, 2016 at 15:15 Discharge Disposition: Home Principal Diagnosis: Bilateral musculoskeletal shoulder pain Problems/Secondary Diagnoses: bilateral musculoskeletal shoulder pain, Syncope due to hypoxia, DM II, Procedures: Stress Echocardiogram 01/01/17 -- Conclusions -- * Left ventricular systolic function is normal. * Grade I diastolic dysfunction, (abnormal relaxation pattern). * Diagnostic exercise echocardiogram without evidence of inducible ischemia CHEST 2 VIEWS ROUTINE 12/31/16 CLINICAL HISTORY: Shortness of breath. Cough. Syncope. COMPARISON STUDY: 11/22/2009 FINDINGS: The cardiac and mediastinal contours are normal. There is no evidence of focal pulmonary consolidation. There is no evidence of failure. No pleural effusions are visualized.[ IMPRESSION: No active disease in the chest. Consultations: Cardiology (Isha Neville PA-C) Problems/Secondary Diagnoses: AFRICA Procedures: overnight oximetry study with significant desaturations highly suggestive of AFRICA (Jerome Wilkinson MD) Medication Reconciliation New Medications: Doxycycline Hyclate (Doxycycline Hyclate) 100 Mg Cap 100 MG PO BID for 5 Days, #10 CAP 0 Refills begin AM of 01/02/17 Fexofenadine Hcl (Renetta) 180 Mg Tab 180 MG PO DAILY, #30 TAB 0 Refills Guaifenesin Ext Rel (Mucinex Ext Rel) 600 Mg Tabcr 600 MG PO Q12 PRN for Cough, #30 TAB 0 Refills Triamcinolone Acetonide (Nasal (Nasacort Allergy 24Hr) 55 Mcg/Act Spr 2 SPRAYS CALEB DAILY, #1 BTL 0 Refills Continued Medications: Aspirin (Aspirin Ec) 81 Mg Tab 81 MG PO DAILY Atorvastatin (Lipitor) 80 Mg Tab 80 MG PO DAILY, TAB Escitalopram Oxalate (Lexapro) 20 Mg Tab 20 MG PO DAILY, TAB Insulin Human NPH (Novolin N) 100 Units/Ml Susp 45 UNITS SQ QAM Insulin Human NPH (Novolin N) 100 Units/Ml Susp 35 UNITS SQ QPM Insulin Human Regular (Novolin R) 100 Units/1 Ml Inj 25 UNITS SQ QAM Insulin Human Regular (Novolin R) 100 Units/1 Ml Inj 10 UNITS SQ QPM PLUS SLIDING SCALE Isosorbide Mononitrate (Isosorbide Mononitrate ER) 60 Mg Tab 90 MG PO BID Metformin Hcl (Glucophage) 850 Mg Tab 850 MG PO BID, TAB Metoprolol Succ (Toprol Xl) (Toprol-Xl) 25 Mg Tabcr 25 MG PO QAM Potassium Chloride (Micro-K Ext Rel) 10 Meq Capcr 10 MEQ PO DAILY, CAP Referrals At Discharge Follow up Referrals: Telephone Collector Referral - Within a Month with Diomedes Zepeda MD Discharge Exam Subjective Pt evaluation today including: conversation w/ patient, conversation w/ family , physical exam, chart review, lab review, review of studies Pain: none PO Intake: good Voiding: no voiding problems The patient was seen and examined this morning. Pt reports doing well. He just had his stress test completed with Dr. Zepeda. He denies having any chest pain during the procedure. He did feels a little fatigued on the treadmill, but denies any shoulder blade pain like he had yesterday. Pt denies any other acute complaints Constitutional: No fever, No chills, No sweats Eyes: No redness, No diplopia ENT: No nasal symptoms, No trouble swallowing Respiratory: No cough, No shortness of breath, No dyspnea on exertion Cardiovascular: No chest pain, No palpitations Abdomen: No pain, No nausea, No vomiting, No diarrhea, No constipation Musculoskeletal: No joint pain, No muscle pain, No swelling Male : No dysuria Neurologic: No weakness, No numbness/tingling Endo: No fatigue Skin: No rash, No itch Objective Vital Signs Date Time Temp Pulse Resp B/P (MAP) Pulse Ox O2 Delivery O2 Flow Rate FiO2 01/01/17 07:33 36.6 58 20 112/68 (83) 95 Room Air 01/01/17 04:05 96 Room Air 01/01/17 04:00 36.5 62 20 122/78 (93) 94 Room Air 01/01/17 00:05 96 Room Air 12/31/16 23:53 36.7 58 20 118/70 (86) 94 Room Air 12/31/16 20:00 Room Air 12/31/16 18:53 36.5 50 18 104/59 (74) 94 Room Air 12/31/16 17:04 36.4 54 20 112/67 (82) 96 Room Air 12/31/16 16:32 36.9 56 16 91/62 96 6/20/17 16:10 56 16 96 12/31/16 16:05 50 19 95 12/31/16 16:00 51 19 91/62 95 12/31/16 15:55 50 16 95 12/31/16 15:50 51 20 95 12/31/16 15:45 54 16 93 12/31/16 15:40 53 19 97 12/31/16 15:39 92/55 12/31/16 15:39 53 18 92/55 96 12/31/16 15:35 57 24 94 12/31/16 15:30 96 Room Air 12/31/16 15:30 59 21 96 12/31/16 15:25 55 20 94 12/31/16 15:20 52 18 93 12/31/16 15:15 56 17 96 12/31/16 15:10 56 18 96 12/31/16 15:05 56 22 97 12/31/16 15:00 52 18 96 12/31/16 14:55 55 20 95 12/31/16 14:50 103/59 12/31/16 12:58 63 96 12/31/16 12:53 60 20 96 12/31/16 12:48 60 18 12/31/16 12:43 58 21 95 12/31/16 12:38 62 15 96 12/31/16 12:33 61 21 96 12/31/16 12:28 58 22 96 12/31/16 12:23 65 16 94 12/31/16 12:18 59 16 98 12/31/16 12:14 58 12/31/16 12:13 55 15 97 12/31/16 12:08 59 20 97 12/31/16 12:07 96 Room Air 12/31/16 12:05 108/65 12/31/16 12:04 36.9 64 20 106/74 95 Room Air Physical Exam General Appearance: WD/WN, no apparent distress Eyes: PERRL, EOMI ENT: hearing grossly normal, pharynx normal Neck: supple, no JVD Respiratory/Chest: chest non-tender, lungs clear, no respiratory distress, no accessory muscle use Cardiovascular: regular rate, rhythm, no murmur Abdomen: normal bowel sounds, non tender, soft Extremities: non-tender, no pedal edema, no calf tenderness Neurologic/Psychiatric: alert, normal mood/affect, oriented x 3 Skin: normal color, warm/dry (Isha Neville PA-C) Hospital Course H&P per [facility] [place] History of Present Illness Source: patient, family, clinic records, hospital records This patient is a pleasant 66-year-old male that presents the emergency department with a main complaint of cough, dizziness and pain between his shoulder blades. He is unable to tell me how long the symptoms have been going on. He thinks that the cough has been going on for at least one month. It is nonproductive. When he has these coughing fits, he gets significantly lightheaded. The patient started coughing in the car today while he was driving with his . He reportedly passed out for 1-2 seconds. He denies any fever or chills. No sick contacts. The patient describes the pain between his shoulder blades as a dull ache as if he over exerted himself or lifted something heavy. He cannot associate it with exertion. It is intermittent. No alleviating factors. It does not radiate anywhere. The patient does have a significant cardiac history. He is a total of 3 cardiac stents. According to the patient, bilateral shoulder pain proceeded one of the stents. Physical Exam Vital Signs Date Time Temp Pulse Resp B/P (MAP) Pulse Ox O2 Delivery O2 Flow Rate FiO2 12/31/16 14:50 103/59 12/31/16 12:58 63 96 12/31/16 12:53 60 20 96 12/31/16 12:48 60 18 12/31/16 12:43 58 21 95 12/31/16 12:38 62 15 96 12/31/16 12:33 61 21 96 12/31/16 12:28 58 22 96 12/31/16 12:23 65 16 94 12/31/16 12:18 59 16 98 12/31/16 12:14 58 12/31/16 12:13 55 15 97 12/31/16 12:08 59 20 97 12/31/16 12:07 96 Room Air 12/31/16 12:05 108/65 12/31/16 12:04 36.9 64 20 106/74 95 Room Air General Appearance: no apparent distress Head: normocephalic Eyes: EOMI Respiratory/Chest: lungs clear, + pertinent finding (no pain elicited with palpation over the scapula bilaterally. No tenderness over the thoracic spine.) Cardiovascular: regular rate, rhythm Abdomen/GI: normal bowel sounds, non tender, soft Extremities/Musculoskelatal: no calf tenderness, no pedal edema, + pertinent finding (a few scabs associated with mosquito bites noted) Neurologic/Psych: no motor/sensory deficits, oriented x 3 Skin: warm/dry Hospital Course: Bilateral shoulder discomfort rule out acute coronary syndrome - Cardiac enzymes were negative x 3 -daily EKG shows bradycardia with HR in high 50s to low 60s. -EKG with worsening pain - Cardiology on board, Stress echo completed, shows grade 1 diastolic dysfunction without any other abnormalities. Will need follow up with Dr. Zepeda as oupt within 1 month. -Continue current medical management with aspirin 81 mg daily, Plavix 75 mg daily, Crestor 40 mg daily, Toprol-XL 25 mg daily and Imdur ER 90 mg daily Syncope-likely vasovagal in nature -Check orthostatics- results are WNL -Telemetry monitoring as noted above DM II -blood sugars have been running slightly high -Hold patient's outpatient dose of metformin 850 mg twice daily while in-house -Continue Novolin 45 units with breakfast and 35 units with dinner -ISS with accuchecks -Hgb A1c=8.9, improved compared to previously DVT pppx: -Lovenox 40 mg subQ daily, -TEDS, SCDs CODE STATUS: -LEVEL I FULL CODE Disposition: From home, discharge home today. Total Time Spent: Greater than 30 minutes This includes examination of the patient, discharge planning, medication reconciliation, and communication with other providers. (Isha Neville, CHRISTOPHE) Attending Discharge Note & Attestation: Pt seen/examined, chart reviewed, and discharge care plan d/w MARQUISE Neville. I agree w/ the anderson components of her discharge summary. 66yo male with recent respiratory illness who presented with a brief episode of syncope that occurred in the midst of a severe coughing spell. He also had b/l shoulder pain and at time of ER presentation had an abnormal EKG. His syncope was likely "cough syncope" and he was reassured that no other serious pathology was found to explain the brief syncopal spell. His bilateral shoulder pain was likely musculoskeletal in origin from frequent coughing. For the abnormal EKG he underwent an exercise stress echocardiogram that showed low suspicion for ischemia. Lastly, he underwent an overnight oximetry study showing significant and frequent episodes of desaturation - highly suggestive of AFRICA. In fact, he was diagnosed with AFRICA about 10 years prior but was noncompliant with CPAP. He will receive 2 L of NC O2 at bedtime while awaiting a formal sleep study in January 2017. Follow-up with his PCP and cardiology were both advised. Discharge exam: gen - nad heart - RRR, s1, s2 lungs - CTA b/l abd - soft, NT ext - no edema neck - no JVD chest - reproducible chest wall pain elicited with palpation Jerome Wilkinson MD (Jerome Wilkinson MD) Discharge Instructions Please refer to the electronic Patient Visit Report (Discharge Instructions) for additional information. (Isha Neville, CHRISTOPHE) Follow-Up Follow up with your Primary Care Provider within 1 week. Follow up with Dr. Zepeda within 4 weeks. (Isha Neville, MARQUISE-C) 1. Dr. Medina, PCP, on Friday01/08/17 at 3:30 pm 2. [facility] for sleep study on Friday01/27/17 at 8:00 pm (Jerome Wilkinson MD) Additional Copies To Armando Medina M.D.; Diomedes Zepeda MD
--- NOTE | 2017-01-01 14:50 | Discharge Instructions ---
Discharge Instructions Date of Service Jan 01, 2017. Admission Reason for Admission: Atypical Chest Pain; Brief Passing Out Spell Discharge Discharge Diagnosis / Problem: Passing out spell due to cough Discharge Goals Goal(s): Learn about illness, Diagnostic testing, Therapeutic intervention Activity Recommendations Activity Limitations: resume your previous activity (as tolerated ) . Instructions / Follow-Up Instructions / Follow-Up From Dr. Wilkinson - 1. Passing out spell - * this was due to your cough * please take the medications listed below to prevent and treat your cough so that you don't have another episode of passing out 2. Pain in between your shoulder blades - * You had no evidence of a heart attack while here * Your stress test was normal * The pain in your shoulders could be related to muscle aches from coughing so much 3. Suspected sleep apnea - * your overnight oxygen testing suggests that you have sleep apnea * sleep apnea leads to chronic fatigue, sleepiness, and desire to take frequent naps * sleep apnea can stress your heart and raise your blood pressure and cause other troubles * you have been scheduled for a sleep study in the near future 4. Cough - * I believe your cough is coming from trouble with your sinuses leading to post- nasal drip * please take the following medications - 1. doxycycline 100mg twice a day for 5 days. Start this tomorrow AM. It is an antibiotic in the event you have a sinus infection. The doxycycline can cause a rash if you go out into the sun. So, please use sunscreen and cover up while on the antibiotic. 2. mucinex 600mg up to twice a day as needed for cough; this can be purchased [id number]. 3. grace 180mg once daily for sinus; this too can be purchased over-the- counter. 4. nasocort nasal spray - 2 sprays in each nostril once a day; purchase over- the-counter. Recommend you take the mucinex, grace, and nasocort for 7-10 days. 5. Follow-up appointments - * see Dr. Zepeda, cardiology, in 1 month * see Dr. Medina as scheduled next week * sleep study as scheduled in the near future 6. Return to [facility] if: * you have fever over 100.5 degrees * you have cough that is associated with shortness of breath, bloody spit, chest pain or tightness 7. Diabetes - Please call Alyssa Laura to discuss your diabetes as your hemoglobin a1c was elevated to near 9%. Current Hospital Diet Patient's current hospital diet: Diabetes Type 2 Diet, AHA Diet (Heart Healthy) Discharge Diet Recommended Diet: AHA Diet (Heart Healthy), Diabetes Type 2 Diet Procedures Procedures Performed: stress test negative for signs of blockages in your heart chest x-ray without signs of pneumonia Pending Studies Studies pending at discharge: no Laboratory Results Hemoglobin A1c Test 01/01/17 08:15 Range/Units Estimated Average Glucose 209 mg/dl Hemoglobin A1c 8.9 H 4.5-5.6 % Lipid Panel Test 01/01/17 08:15 Range/Units Triglycerides Level 75 0-150 mg/dl Cholesterol Level 89 0-200 mg/dl HDL Cholesterol 34 mg/dl Cholesterol/HDL Ratio 2.6 LDL Cholesterol, Calculated 40 mg/dl Medical Emergencies . Who to Call and When: Medical Emergencies: If at any time you feel your situation is an emergency, please call 911 immediately. . Non-Emergent Contact Non-Emergency issues call your: Primary Care Provider Call Non-Emergent contact if: temperature is above 100.5, you have any medication questions . . "Provider Documentation" section prepared by Jerome Wilkinson. . VTE Core Measure Inpt VTE Proph given/why not?: Enoxaparin (Lovenox)SQ
[2017-01-01] MEDS ORDERED: INSULIN GLARGINE SOLOSTAR 100 UNITS/ML 3 ML PEN SC SCH (21:00)
== END 2017-01-01 15:25 | disposition home or self-care (01) ==
LOC: C.EDB 12:00 → C.MED 15:15 → ENRESERV 16:00
PROVIDERS: ADMIT Internal Medicine; ATTEND Internal Medicine
DX: M25.511 Pain in right shoulder (principal); M25.512 Pain in left shoulder; R55 Syncope and collapse; E11.9 Type 2 diabetes mellitus without complications; I25.10 Atherosclerotic heart disease of native coronary artery without angina pectoris; Z95.5 Presence of coronary angioplasty implant and graft; I10 Essential (primary) hypertension; E78.5 Hyperlipidemia, unspecified; K21.9 Gastro-esophageal reflux disease without esophagitis; F32.9 Major depressive disorder, single episode, unspecified; Z79.4 Long term (current) use of insulin; Z79.899 Other long term (current) drug therapy; Z79.82 Long term (current) use of aspirin; Z79.02 Long term (current) use of antithrombotics/antiplatelets

== ENCOUNTER → 2017-01-27 | Outpatient (CLI) | payer OTHER ==
[~2017-01-27] MED LIST: ASPI81TA28 PO; ATOR-26 PO; DXY100 PO; ESCI1TAB10 PO; FEXO1TAB46 PO; GFNSR600 PO; IMDSR60 PO; METF-383 PO; METO25TA3 PO; NVLNI SQ; NVLRPUC SQ; POTA10CA28 PO; RRNOVOLINR SQ; TRIA1SPR4 NAE
--- NOTE | 2017-01-28 05:38 | PAP/PSG TECHNICIAN REPORT ---
[facility] Lockstitch Sleeve Setter Polysomnogram Report Study name: None Report date: 01/28/2017 Study date: 01/27/2017 Referring Physician: Jerome Wilkinson M.D. Name: JARRED MEJIAS Interpreting Physician: Arie López M.D. Date of : 1950 Lockstitch Sleeve Setter: Gabriela Cowan RPSGT. Sex: Male Age: 66 StudyType: PSG Weight: 223 lbs Height: 66 years, Height 5' 10" Neck Circum:16inches BMI: 31.99 Medications: Isosorbide Price ER 60mg, Metformin 850mg, Atorvastatin 80mg, Metoprolol 25mg, ASA 81mg, Potassium Chloride, Escitalopram 20mg, Novolin N 45units, Novolin [id number] Patient History Study started on room air with no ETCO2 monitoring in room #6. 66 yr old male here tonight for a diagnostic psg. He had a failed nocturnal oximetry study. He has been on 2lpm oxygen at night for about two weeks. He was diagnosed with moderate AFRICA several years ago at [facility] but could not tolerate cpap and he no longer has a machine. He has been having coughing episodes and one episode caused him to lose consciousness. He said that he snores on occasion and that he wakes up frequently at night. He does dream. His ESS=16/24. Neck circ=16inches Parameters Monitored NPSG: E1-M2, E2-M1, Fp1-M2, Fp2-M1, F3-M2, F4-M2, F4-M1, C3-M2, C4-M2, C4-M1, O1-M2, O2-M2, O2-M1, T3-M2, T4-M1, P3-M2, P4-M1, CHIN1, CHIN2, HR, EKG, Legs, PFLOW, SNOR, FLOW, CFLOW, Tidal Volume, THOR, ABDO, SpO2, PLTH, CPRESS, ETCO2 Wave, ETCO2, pH Sleep Architecture Sleep Stages Time at Lights Off 9:57:44 PM STAGES Time (min.) TST (%) Time at Lights On 5:24:14 AM Wake 73.5 -- Total Recording Time (TRT) 446.50 min. N1 24.5 7 Total Sleep Period (TSP) 432.5 min. N2 311.5 84 Total Sleep Time (TST) 373.0min. N3 25.5 7 Awake Time 73.5 min. REM 11.5 3 Wake after Sleep Onset 59.5 min. Sleep Efficiency (SE) 84 % Sleep Onset Latency (ALEJANDRO) 14.0 min. Number of Stage 1 Shifts None Awakenings 33 Stage Changes 119 Number of REM periods 1 REM 11.5 3 REM Latency 348.0 min. NREM 361.5 97 Body Position Analysis Supine Right Left Side Prone Vertical Total Sleep Time (min.) 223.3 92.0 85.5 177.50 0.0 0.0 Total Sleep Time (%) 52% 25% 23% 48 0% N/A% Total Sleep Time REM (min.) 11.5 0.0 0.0 None 0.0 0.0 Total Sleep Time NREM (min.) 184.0 92.0 85.5 None 0.0 0.0 Intermittent Wake (min.) 27.8 33.1 12.5 None 0.0 0.0 Total Sleep Period (%) 51% None None None None None Arousals Myoclonus (PLM) * Events Count Index Events Count Index Spontaneous 15 2 Events Awake (PLMW) 122 99.6 Respiratory 2 0.5 Events Asleep w/ Arousal (PLMA) 17 2.7 PLM 16 3 Events Asleep w/o Arousal (PLMS) 53 8.5 Snoring 6 1 Total Asleep 70 11.3 Total 38 6 Total 192 26 Respiratory Analysis * CA OA MA CH H RERA Total Count 0 2 0 0 15 0 17 Index 0.0 0.3 0.0 0 2.4 0 2.7 Mean Duration 0.0 35.2 0.0 0.00 20.4 0.0 22.2 Longest Duration 0.0 57.1 0.0 0.00 0.0 0.0 57.1 Respiratory Event Summary Total Supine ~Supine Right Left Prone REM NREM Apneas Count 2 0 2 0 2 N/A 0 2 Index 0.3 0 1 0.0 1.4 N/A 0 0 Hypopneas (4% Desat) Count 15 15 0 0 0 N/A 5 10 Index 2.4 4.6 0 0.0 0.0 N/A 26.1 1.7 Apneas & All Hypopneas Count 17 15 2 0 2 N/A 5 12 Index 2.7 5 1 0 1 N/A 26.1 2.0 Respiratory Events (Real Estate Site Analyst+All Hyp+RERA) Count 17 15 2 0 2 N/A 5 12 Index 2.7 5 1 0.0 1.4 N/A 26.1 2.0 Respiratory Related Arousal Count 2 15 1 0 1 N/A 0 3 Index 0.5 1 0 0 1 N/A 0 0 Snoring Analysis Supine Right Left Prone REM NREM Total Snore duration 78.0 min Snores count 1,822 226 321 N/A 62 2,307 2,369 Snore mean duration 2.0 Sec Snores index 559 147 225 N/A 323.5 382.9 381.1 TST with snoring (%) 20.9% Desaturation Event Summary: Minimum %SpO2 Event Count Mean/Min/Max Duration(sec.) Desaturation Index % Time In Bed > 90 25 27.0 / 9.8 / 53.0 7.1 47.6 86 - 90 30 22.5 / 7.3 / 52.5 7.9 51.3 81 - 85 1 14.0 / 14.0 / 14.0 12.0 1.1 76 - 80 0 N/A 0.0 0.0 71 - 75 0 N/A 0.0 0.0 66 - 70 0 N/A 0.0 0.0 61 - 65 0 N/A 0.0 0.0 56 - 60 0 N/A 0.0 0.0 51 - 55 0 N/A 0.0 0.0 < 50 0 N/A 0.0 0.0 Total REM NREM Awake <50% 0.0 min. 0.0 min. 0.0 min. 0.0 min. 51 - 60% 0.0 min. 0.0 min. 0.0 min. 0.0 min. 61 - 70% 0.0 min. 0.0 min. 0.0 min. 0.0 min. 71 - 80% 0.0 min. 0.0 min. 0.0 min. 0.0 min. 81 - 90% 233.8 min. 11.5 min. 168.4 min. 53.9 min. 91 - 100% 212.0 min. 0.0 min. 193.0 min. 19.1 min. Average 90 87 90 89 Minimum SpO2 80 83 82 80 Desaturation Event Index 5.4 31.3 3.0 14.7 # Desat. Events below 89% 36 6 14 16 Time(%) with Saturation below 89% 22.9 1.8 15.3 5.7 Time(min.) with Saturation below 89% 102.2 8.2 68.4 25.5 Time (mins) REM (mins) NREM (mins) % of TST SpO2 Below 90% 23 6 N17 36.8 SpO2 Below 88% 8 0 0 7 Heart Rate Analysis Min (bpm) Max (bpm) Average (bpm) Awake 57 86 67 NREM 58 127 64 REM 65 74 70 Overall 58 127 65 Supplemental O2 Values Minimum O2 level: None Value Start Time End Time Lockstitch Sleeve Setter Comments Mr. Mejias slept in the right, left and supine positions. No cardiac arrhythmia noted. Some leg movements were noted. No bruxism noted. Snoring was noted and scored as a 4 on a scale of 1 through 5. (0=no snoring, 5=snoring loud enough to be heard through a closed door or down the zhu way) He did not use the restroom during the night. He stated that he slept about the same as usual. The final report will be interpreted and signed by a sleep physician. The completed physician report will then be placed in the patient medical record. Therapy (cm H2O) 0 TIB (min.) 446.5 TST (min.) 373.0 Sleep Onset (min.) 14.0 REM Onset From Sleep (min.) 348.0 Sleep Efficiency % 84 Wakefulness (%) 16 Wakefulness (min.) 73.5 NREM 1 (%) 7 NREM 1 (min.) 24.5 NREM 2 (%) 84 NREM 2 (min.) 311.5 NREM 3 (%) 7 NREM 3 (min.) 25.5 REM (%) 3 REM (min.) 11.5 # Arousals 38 Arousal Index 6 # Snore 2,369 Snore Index 381.1 AHI 2.7 AHI Supine 5 AHI Non-Supine 1 NREM AHI 2.0 REM AHI 26.1 RDI 2.7 # Obstructive Apnea 2 # Central Apnea 0 # Mixed Apnea 0 # Hypopneas 15 RERAs 0 Total Respiratory Events 17 Time Below SpO2 89% (min.) 76.7 Mean NREM SpO2 (%) 90 Mean REM SpO2 (%) 87 Mean Sleep SpO2 (%) 90 Min NREM SpO2 (%) 82 Min REM SpO2 (%) 83 Position Supine (min.) 223.3 Position Non-supine (min.) 177.5 LM Index Sleep 11.3 LM Index NREM 11.1 LM Index REM 15.7 Mean Heart Rate (bpm) 65 Min Heart Rate (bpm) 58
--- NOTE | 2017-01-29 16:43 | Sleep Study ---
Sleep Study Report Date of Service: January 27, 2017 Sleep Study Report Clinical data: The patient is a 66-year-old male with a BMI of 32 referred for evaluation of possible sleep apnea. He was recently in the hospital and had nocturnal hypoxemia documented on overnight pulse oximetry. He was sent home on oxygen 2 liters/minute at night. He previously was diagnosed with moderate sleep apnea at [facility] but could not tolerate CPAP. He has been having coughing episodes at night. He does snore and occasionally wakes up at night. His Reform sleepiness score is 16/24. Sleep architecture: Total sleep period was 432.5 minutes. Total sleep time was 373 minutes divided between 361.5 minutes of non-REM sleep and 11.5 minutes of REM sleep. Sleep onset latency was 14 minutes. REM latency was delayed at 348 minutes. Sleep efficiency was 84 percent. Wake after sleep onset was 59.5 minutes. Sleep consisted of stage N1 7 percent, stage N2 84 percent, stage N3 7 percent, and REM 3 percent. Arousal data: 38 arousals were recorded for an index of 6 per hour. PLM data: 70 limb movements during sleep were noted for an index of 11.3 per hour with an arousal index of 2.7 per hour. Respiratory data: There was no evidence of clinically significant sleep apnea seen. The AHI was 2.7. There are 2 obstructive apneic episodes. The longest apneic episode was 57.1 seconds. There were 15 hypopneas with a mean duration of 20.4 seconds. Oximetry data: Nocturnal hypoxemia was seen. Oxygen jessy was 82 percent. Mean saturation was 90 percent. Time below 88 percent was 8 minutes. EKG: Heart rates ranged from 58 to 127 beats per minute. No arrhythmias were noted. Manager [employer]'s comments: The patient slept in the right, left, and supine positions. Snoring was severe, rated 4 on a scale of 1 through 5. He did not awaken to use the restroom. Impression: No evidence of clinically significant sleep apnea/hypopnea. Nocturnal hypoxemia was seen. Recommendations: The patient should continue with use of nocturnal oxygen. There is nothing on the current sleep study to suggest that CPAP would be of benefit. Copies To 1: Armando Medina M.D.; eJrome Wilkinson MD
--- NOTE | 2017-02-03 08:34 | EDITING REQUIRED CODING QUERY ---
SUPPORTING DIAGNOSIS NEEDED A supporting diagnosis is required for the test/procedure performed on this patient in order for us to be reimbursed by the patient's insurance. Please provide a supporting diagnosis for the following test/procedure listed below next to the test name along with your signature. *If there is no additional diagnosis for this patient that would support the following test/procedure please document that below next to the test/procedure. Test(s)/Procedure(s) that require a supporting diagnosis: * SLEEP STUDY DIAGNOSIS: AFRICA, nocturnal hypoxia, fatigue Provider Signature: __Jerome Wilkinson MD Date: ___02/07/17____ Thank you Rhonda [place] [employer] Once completed, please kindly fax back to [phone] For questions please call [phone]
== END | disposition home or self-care (01) ==
LOC: C.NEUR 20:00
PROVIDERS: ATTEND Internal Medicine
DX: R09.02 Hypoxemia (principal); G47.33 Obstructive sleep apnea (adult) (pediatric); R53.83 Other fatigue

== ENCOUNTER → 2017-09-26 | Outpatient (CLI) | payer OTHER ==
[2017-09-26 15:35] LABS: BLOOD UREA NITROGEN 17 mg/dl (7-18); CALCIUM 9.2 mg/dl (8.5-10.1); CARBON DIOXIDE 29 mmol/L (21-32); GLUCOSE 54 mg/dl (70-99); POTASSIUM 3.7 mmol/L (3.5-5.1); SODIUM 140 mmol/L (136-145)
[2017-09-27 06:32] LABS: HEMOGLOBIN A1C 8.6 % (4.5-5.6)
== END | disposition home or self-care (01) ==
LOC: C.LAB1850 14:16
PROVIDERS: ATTEND Nurse Practitioner Adult Health
DX: I10 Essential (primary) hypertension (principal); E78.5 Hyperlipidemia, unspecified; E11.65 Type 2 diabetes mellitus with hyperglycemia; E83.51 Hypocalcemia